=== PATIENT | female | born 1980 | race African-American/Black ===

== ENCOUNTER 2017-06-29 11:24 | Emergency (ER) | payer BC, OTHER ==
[~2017-06-29 11:24] MED LIST: Sodium Chloride Irrig Solution 250 ML BOT ONE
[2017-06-29] MEDS ORDERED: Lidocaine 1% 20 ML MDV ONE (11:50)
[2017-06-29] MEDS ORDERED: Adacel (T-DAP) 0.5 ML VIAL ONE (11:50)
[2017-06-29] MEDS ORDERED: Triple Antibiotic Oint 1 GM Packet ONE (12:21)
== END 2017-06-29 12:50 | disposition home or self-care (01) ==
LOC: MADERS 11:24
DX: S61.215A Laceration without foreign body of left ring finger without damage to nail, initial encounter (principal); D64.9 Anemia, unspecified; D25.9 Leiomyoma of uterus, unspecified; Z23 Encounter for immunization; W26.0XXA Contact with knife, initial encounter; Y92.009 Unspecified place in unspecified non-institutional (private) residence as the place of occurrence of the external cause
CPT/HCPCS: 12001; 90471; 90715; J2001

== ENCOUNTER 2017-07-01 14:16 | Emergency (ER) | payer BC | END 2017-07-01 14:37 | disposition home or self-care (01) | LOC: MADERS 14:16 | DX: J20.9 Acute bronchitis, unspecified (principal); D64.9 Anemia, unspecified | CPT/HCPCS: 99283 ==

== ENCOUNTER 2018-08-06 19:11 | Emergency (ER) | payer BC ==
[2018-08-06] MEDS ORDERED: Ibuprofen 800 MG TAB ONE (19:49)
== END 2018-08-06 20:00 | disposition home or self-care (01) ==
LOC: MADERS 19:11
DX: S16.1XXA Strain of muscle, fascia and tendon at neck level, initial encounter (principal); S29.012A Strain of muscle and tendon of back wall of thorax, initial encounter; D64.9 Anemia, unspecified; V40.5XXA Car driver injured in collision with pedestrian or animal in traffic accident, initial encounter
CPT/HCPCS: 99283

== ENCOUNTER 2018-10-12 08:17 | Emergency (ER) | payer BC ==
[2018-10-12] MEDS ORDERED: Ondansetron PF 4 MG/2 ML Vial ONE (09:07)
[2018-10-12] MEDS ORDERED: Sodium Chloride 0.9% 1,000 ML ONE (09:07)
[2018-10-12] MEDS ORDERED: Morphine 4 MG/ML VIAL ONE (09:07)
[2018-10-12 09:28] LABS: #Basophils 0.1 thou/uL (0.0-0.2); #Eosinphils 0.2 thou/uL (0.0-0.7); #Lymphocytes 1.8 thou/uL (1.20-3.40); #Monocytes 0.5 thou/uL (0.11-0.59); #Neutrophils 3.5 thou/uL (1.40-6.50); %Basophils 1.8 % (0.0-1.0); %Eosinophils 3.1 % (0.0-10.0); %Lymphocytes 29.9 % (21.0-51.0); %Monocytes 8.7 % (0.0-10.0); %Neutrophils 56.5 % (42.0-75.0); Hemoglobin 12.5 g/dL (12.0-16.0); Mean Corpuscular HGB CONC 31.7 g/dL (32.0-36.0); Mean Corpuscular Hemoglobin 28.8 pg (27.0-31.0); Mean Corpuscular Volume 90.8 fL (78.0-98.0); Mean Platelet Volume 8.5 fL (7.4-10.4); Platelet Count 323 thou/uL (130-400); RBC Distribution Width 13.1 % (11.5-14.5); Red Blood Cell (RBC) Count 4.35 mill/uL (4.20-5.40); White Blood Cell (WBC) Count 6.1 thou/uL (4.8-10.8)
[2018-10-12 09:46] LABS: ALT (SGPT) 27 U/L (8-55); AST (SGOT) 18 U/L (5-34); Albumin 4.1 g/dL (3.5-5.0); Alkaline Phosphatase 72 U/L (40-150); Anion Gap 13 mmol/L (10-20); BUN (Urea Nitrogen) 12 mg/dL (7.0-18.7); Bilirubin, Total 0.4 mg/dL (0.2-1.2); Calc. Creatinine Clearance 0 mL/min (70-130); Calcium 8.7 mg/dL (7.8-10.44); Carbon Dioxide 20 mmol/L (22-29); Chloride 108 mmol/L (98-107); Estimated GFR-MDRD Greater than 90; Globulin 3.8 g/dL (2.4-3.5); Glucose 111 mg/dL (70-105); Lipase 15 U/L (8-78); Potassium 4.3 mmol/L (3.5-5.1); Protein, Total 7.9 g/dL (6.0-8.3); Sodium 137 mmol/L (136-145)
[2018-10-12] MEDS ORDERED: Ketorolac Tromethamine 30 MG/ML VIAL ONE (09:58)
[2018-10-12 09:59] LABS: Bilirubin Negative (Negative); Blood, Urine Trace (Negative); Clarity Clear (Clear); Glucose, Urine (Dipstick) Negative (Negative); Leukocyte Trace (Negative); Nitrite Positive (Negative); Protein, Urine (Dipstick) Negative (Neg-Trace); Urobilinogen 0.2 mg/dL (0.2-1.0)
[2018-10-12 10:04] LABS: Bacteria/HPF 3+ HPF (None Seen); RBC/HPF 0-3 HPF (0-3)
[2018-10-12] MEDS ORDERED: cefTRIAXone\\ROCEPHIN 1 GM VIAL ONE (10:16)
--- NOTE | 2018-10-12 10:26 | CT ---
CT OF THE ABDOMEN AND PELVIS WITHOUT CONTRAST: COMPARISON: None. HISTORY: Acute right lower quadrant abdominal pain starting at 6:30 this morning associated with nausea. TECHNIQUE: Multiple contiguous axial images were obtained in a CT of the abdomen and pelvis with contrast. Chris nal reformats were performed. FINDINGS: There is a subcentimeter hypodensity in the right lobe of the liver which is too small to definitely characterize but may represent a cyst. The gallbladder, kidneys, adrenal glands, spleen, and pancrea s are unremarkable. No free air, free fluid, or stranding changes are seen in the abdomen or pelvis. The patient is stat us post partial hysterectomy. The large and small bowel are unremarkable. The appendix is normal. No abdominal or pelvic lymphadenopathy are seen. The bones are unremarkable. The visualized inferior thorax and abdominal wall soft tissues are unrem arkable. IMPRESSION: 1. No evidence of acute intraabdominal/pelvic abnormality. 2. Likely small right hepatic cyst. POS: [facility]
[2018-10-12] MEDS ORDERED: Iopamidol 370 76% 100 ML VIAL ONE (11:40)
== END 2018-10-12 11:10 | disposition home or self-care (01) ==
LOC: MADERS 08:17
DX: N39.0 Urinary tract infection, site not specified (principal); R10.31 Right lower quadrant pain; I10 Essential (primary) hypertension; D64.9 Anemia, unspecified
CPT/HCPCS: 74177; 80053; 81003; 81015; 83605; 83690; 85025; 87040; 96361; 96374; 96375; J0696; J1885; J2270; J2405; J7050; Q9967

== ENCOUNTER 2021-06-15 09:49 | Emergency (ER) | payer BC ==
[2021-06-15] MEDS ORDERED: Ondansetron PF 4 MG/2 ML Vial ONE (10:23)
[2021-06-15] MEDS ORDERED: Ketorolac Tromethamine 30 MG/ML VIAL ONE ×2 (10:23→12:48)
[2021-06-15] MEDS ORDERED: Sodium Chloride 0.9% 1,000 ML ONE (10:25)
[2021-06-15 10:41] LABS: #Basophils 0.1 thou/uL (0.0-0.2); #Eosinphils 0.2 thou/uL (0.0-0.7); #Lymphocytes 1.7 thou/uL (1.20-3.40); #Monocytes 0.5 thou/uL (0.11-0.59); #Neutrophils 3.3 thou/uL (1.40-6.50); %Lymphocytes 29.8 % (21.0-51.0); %Monocytes 7.9 % (0.0-10.0); %Neutrophils 57.4 % (42.0-75.0); Hemoglobin 13.4 g/dL (12.0-16.0); Mean Corpuscular HGB CONC 31.7 g/dL (32.0-36.0); Mean Corpuscular Hemoglobin 29.1 pg (27.0-31.0); Mean Corpuscular Volume 91.6 fL (78.0-98.0); Mean Platelet Volume 7.7 fL (7.4-10.4); Platelet Count 394 thou/uL (130-400); RBC Distribution Width 13.2 % (11.5-14.5); White Blood Cell (WBC) Count 5.7 thou/uL (4.8-10.8)
[2021-06-15 10:54] LABS: Bilirubin Negative (Negative); Blood, Urine Negative (Negative); Clarity Clear (Clear); Glucose, Urine (Dipstick) Negative (Negative); Ketone, Urine Negative (Negative); Leukocyte Negative (Negative); Nitrite Negative (Negative); Protein, Urine (Dipstick) Negative (Neg-Trace); Urobilinogen 0.2 mg/dL (Less than 2)
[2021-06-15 10:55] LABS: CK (CPK) 186 U/L (29-168); CRP (Inflammatory) Less than 0.50 mg/dL (= or < 0.5)
[2021-06-15 10:57] LABS: ALT (SGPT) 21 U/L (8-55); AST (SGOT) 14 U/L (5-34); Albumin 3.9 g/dL (3.5-5.0); Alkaline Phosphatase 65 U/L (40-110); Anion Gap 12 mmol/L (10-20); BUN (Urea Nitrogen) 7 mg/dL (7.0-18.7); Bilirubin, Total 0.5 mg/dL (0.2-1.2); Calc. Creatinine Clearance 0 mL/min (70-130); Calcium 9.3 mg/dL (7.8-10.44); Carbon Dioxide 26 mmol/L (22-29); Chloride 105 mmol/L (98-107); Globulin 3.8 g/dL (2.4-3.5); Glucose 121 mg/dL (70-105); Protein, Total 7.7 g/dL (6.0-8.3); Sodium 139 mmol/L (136-145)
[2021-06-15] MEDS ORDERED: Iopamidol 370 76% 100 ML VIAL ONE (12:29)
== END 2021-06-15 14:00 | disposition home or self-care (01) ==
LOC: MADERS 09:49
DX: N83.209 Unspecified ovarian cyst, unspecified side (principal); D64.9 Anemia, unspecified
CPT/HCPCS: 74177; 80053; 81003; 82550; 85025; 86140; 96374; 96375; J1885; J2405; J7050; Q9967

== ENCOUNTER 2022-01-15 08:00 | Emergency (ER) | payer BC, OTHER ==
[2022-01-15] MEDS ORDERED: Acetaminophen 500 MG TAB ONE (08:55)
[2022-01-15] MEDS ORDERED: Ketorolac Tromethamine 30 MG/ML VIAL ONE (08:55)
== END 2022-01-15 09:05 | disposition home or self-care (01) ==
LOC: MADERS 08:00
DX: M54.50 Low back pain, unspecified (principal); I10 Essential (primary) hypertension; D64.9 Anemia, unspecified; V40.0XXA Car driver injured in collision with pedestrian or animal in nontraffic accident, initial encounter; Z79.899 Other long term (current) drug therapy
CPT/HCPCS: 96372; 99283; J1885

== ENCOUNTER 2022-09-20 09:50 | Emergency (ER) | payer BC ==
[2022-09-20] MEDS ORDERED: Ondansetron ODT 4 MG TAB ONE (10:29)
[2022-09-20] MEDS ORDERED: Ipratropium/Albuterol 3 ML NEB ONE (10:29)
[2022-09-20] MEDS ORDERED: Mineral Oil ENEMA ONE (14:54)
== END 2022-09-20 11:25 | disposition home or self-care (01) ==
LOC: MADERS 09:50
DX: U07.1 COVID-19 (principal); I10 Essential (primary) hypertension; D64.9 Anemia, unspecified; D25.9 Leiomyoma of uterus, unspecified; Z79.899 Other long term (current) drug therapy
CPT/HCPCS: 71045; 87804; J7620; Q0162; U0003; U0005